=== PATIENT | male | born 1945 | race American Indian/Alaskan Native ===

== ENCOUNTER 2016-09-16 14:27 | Emergency (ER) | payer MEDICARE ==
[2016-09-16 15:00] VITALS: BP 152/83
== END 2016-09-16 18:40 | disposition left against medical advice (07) ==
LOC: ED 14:27
DX: R51 Headache (principal); Z53.21 Procedure and treatment not carried out due to patient leaving prior to being seen by health care provider
CPT/HCPCS: 93005; 93010

== ENCOUNTER 2016-09-18 16:26 | Emergency (ER) | payer MEDICARE ==
[2016-09-18 16:41] VITALS: BP 149/106
--- NOTE | 2016-09-21 18:35 | ED Elopement Review ---
ED Pt Elopement review - Call Back decision Pt Call Back Decision: Pt to F/U with PMD
== END 2016-09-18 21:24 | disposition left against medical advice (07) ==
LOC: ED 16:26
DX: R07.89 Other chest pain (principal); M54.9 Dorsalgia, unspecified; R51 Headache; Z53.21 Procedure and treatment not carried out due to patient leaving prior to being seen by health care provider
CPT/HCPCS: 93005; 93010

== ENCOUNTER 2017-03-17 05:29 | Emergency (ER) | payer MEDICARE ==
[2017-03-17 06:32] VITALS: BP 139/88
[2017-03-17 06:53] LABS: Basophils % (Auto) 0.7 % (0.0-1.8); Hematocrit 43.1 % (35.5-45.6); Hemoglobin 14.2 gm/dl (11.8-15.2); Mean Corpuscular HGB Conc 33 % (32-34); Mean Corpuscular Hemoglobin 30 pg (28-32); Mean Corpuscular Volume 91 fl (84-94); Platelet Count 163 K/mm3 (140-440); Red Blood Count 4.76 M/mm3 (3.65-5.03); Red Cell Distribution Width 13.7 % (13.2-15.2); White Blood Count 6.4 K/mm3 (4.5-11.0)
[2017-03-17 07:11] LABS: Anion Gap 17 mmol/L; Blood Urea Nitrogen 14 mg/dL (9-20); Calcium 8.9 mg/dL (8.4-10.2); Carbon Dioxide 25 mmol/L (22-30); Chloride 104.4 mmol/L (98-107); Glucose 96 mg/dL (75-100); Sodium 142 mmol/L (137-145)
[2017-03-17 07:23] LABS: INR 0.93 (0.87-1.13)
--- NOTE | 2017-03-17 08:23 | XRay Report ---
CHEST TWO VIEWS: 03/17/17 06:46 CLINICAL: Chest pain. COMPARISON: 06/29/16 FINDINGS: Normal heart. Relatively large central pulmonary arteries.Marked aortic tortuosity is unchanged compared to the prior exam. The lungs are hyperexpanded and hyperlucent . No airspace disease or pleural effusion.The bones and soft tissues are unremarkable. IMPRESSION: COPD. No CHF or pneumonia.
--- NOTE | 2017-03-17 10:54 | Emergency Department Report ---
ED General Adult HPI - General Chief complaint: Chest Pain Stated complaint: CHEST PAIN Time Seen by Provider: 03/17/17 09:40 Source: patient, RN notes reviewed, old records reviewed Mode of arrival: Ambulatory Limitations: No Limitations - History of Present Illness Initial comments: The tightness did not radiate to the back, arms or neck. There is no nausea, vomiting or diaphoresis. There is no shortness of breath. There is no cough. There is no hemoptysis or hematemesis. There is no leg pain or leg swelling. No recent trips greater than 4 hours. No recent hospital admissions. The patient reports a negative stress test with [facility] a few months ago. -: Gradual Location: chest Radiation: non-radiation Severity scale (0 -10): 3 Quality: aching Consistency: now resolved Improves with: none Worsens with: none Associated Symptoms: denies other symptoms - Related Data Previous Rx's Medication Instructions Recorded Last Taken Type traMADol [Ultram] 50 mg PO Q4HR PRN #20 tablet 10/01/15 Unknown Rx Sulfamethoxazole/Trimethoprim 1 each PO BID #6 tablet 04/30/16 Unknown Rx [Bactrim DS TAB] ALBUTEROL Inhaler [Proair] 2 puff IH QID PRN #1 inhalation 06/29/16 Unknown Rx Amoxicillin/K Clav Tab [Augmentin 1 tab PO Q12HR #20 tab 06/29/16 Unknown Rx 875 mg] guaiFENesin/CODEINE [Robitussin AC] 10 ml PO QHS PRN #70 ml 06/29/16 Unknown Rx predniSONE [Deltasone] 50 mg PO QDAY #5 tab 06/29/16 Unknown Rx Aspirin [Aspirin TAB] 325 mg PO QDAY #30 tablet 03/17/17 Unknown Rx Allergies Allergy/AdvReac Type Severity Reaction Status Date / Time No Known Allergies Allergy Verified 06/29/16 10:24 ED Review of Systems ROS: Stated complaint: CHEST PAIN Other details as noted in HPI ED Past Medical Hx - Past Medical History Previous Medical History?: No - Surgical History Past Surgical History?: No - Social History Smoking Status: Never Smoker - Medications Home Medications: Home Medications Medication Instructions Recorded Confirmed Last Taken Type traMADol [Ultram] 50 mg PO Q4HR PRN #20 tablet 10/01/15 Unknown Rx Sulfamethoxazole/Trimethoprim 1 each PO BID #6 tablet 04/30/16 Unknown Rx [Bactrim DS TAB] ALBUTEROL Inhaler [Proair] 2 puff IH QID PRN #1 inhalation 06/29/16 Unknown Rx Amoxicillin/K Clav Tab [Augmentin 1 tab PO Q12HR #20 tab 06/29/16 Unknown Rx 875 mg] guaiFENesin/CODEINE [Robitussin AC] 10 ml PO QHS PRN #70 ml 06/29/16 Unknown Rx predniSONE [Deltasone] 50 mg PO QDAY #5 tab 06/29/16 Unknown Rx Aspirin [Aspirin TAB] 325 mg PO QDAY #30 tablet 03/17/17 Unknown Rx ED Physical Exam - General Limitations: No Limitations General appearance: alert, in no apparent distress - Head Head exam: Present: atraumatic, normocephalic - Eye Eye exam: Present: normal appearance, EOMI. Absent: nystagmus - ENT ENT exam: Present: normal exam, normal orophraynx, mucous membranes moist, normal external ear exam - Neck Neck exam: Present: normal inspection, full ROM. Absent: tenderness, meningismus - Respiratory Respiratory exam: Present: normal lung sounds bilaterally. Absent: respiratory distress, wheezes, rales, stridor, chest wall tenderness - Cardiovascular Cardiovascular Exam: Present: regular rate, normal rhythm, normal heart sounds. Absent: bradycardia, tachycardia, irregular rhythm, systolic murmur, diastolic murmur, rubs, gallop - GI/Abdominal GI/Abdominal exam: Present: soft, normal bowel sounds. Absent: distended, tenderness, guarding, rebound, rigid, pulsatile mass - Rectal Rectal exam: Present: deferred - Extremities Exam Extremities exam: Present: normal inspection, full ROM, normal capillary refill. Absent: pedal edema, joint swelling, calf tenderness - Back Exam Back exam: Present: normal inspection, full ROM. Absent: tenderness, CVA tenderness (R), CVA tenderness (L), muscle spasm, paraspinal tenderness, vertebral tenderness - Neurological Exam Neurological exam: Present: alert, oriented X3, normal gait, other (Extraocular movements intact. Tongue midline. No facial droop. Facial sensation intact to light touch in the V1, V2, V3 distribution bilaterally. 5 and 5 strength in 4 extremities.. Sensation is intact to light touch in 4 extremities.). Absent : motor sensory deficit - Psychiatric Psychiatric exam: Present: normal affect, normal mood - Skin Skin exam: Present: warm, dry, intact, normal color. Absent: rash ED Course Vital Signs 03/17/17 03/17/17 06:27 09:21 Temperature 98.7 F Pulse Rate 61 Respiratory 18 16 Rate Blood Pressure 139/88 O2 Sat by Pulse 98 97 Oximetry ED Medical Decision Making - Lab Data Result diagrams: 03/17/17 06:39 03/17/17 06:39 Vital Signs 03/17/17 03/17/17 06:27 09:21 Temperature 98.7 F Pulse Rate 61 Respiratory 18 16 Rate Blood Pressure 139/88 O2 Sat by Pulse 98 97 Oximetry Labs 03/17/17 03/17/17 03/17/17 06:39 06:39 06:52 WBC 6.4 RBC 4.76 Hgb 14.2 Hct 43.1 MCV 91 MCH 30 MCHC 33 RDW 13.7 Plt Count 163 Lymph % (Auto) 19.2 Burnett % (Auto) 8.5 H Eos % (Auto) 1.0 Baso % (Auto) 0.7 Lymph # 1.2 Burnett # 0.5 Eos # 0.1 Baso # 0.0 Seg Neutrophils % 70.6 H Seg Neutrophils # 4.6 PT 12.9 INR 0.93 Carbon Dioxide 25 BUN 14 Creatinine 0.8 Estimated GFR > 60 BUN/Creatinine Ratio 17.50 Glucose 96 Calcium 8.9 Troponin T < 0.010 03/17/17 09:41 WBC RBC Hgb Hct MCV MCH MCHC RDW Plt Count Lymph % (Auto) Burnett % (Auto) Eos % (Auto) Baso % (Auto) Lymph # Burnett # Eos # Baso # Seg Neutrophils % Seg Neutrophils # PT INR Carbon Dioxide BUN Creatinine Estimated GFR BUN/Creatinine Ratio Glucose Calcium Troponin T < 0.010 - EKG Data -: EKG Interpreted by Ri EKG shows normal: sinus rhythm - EKG Data Interpretation: no acute changes 03/17/17 11:31 EKG #1 demonstrates sinus, 60 bpm, left axis deviation, not morphologically consistent with STEMI, appears unchanged when compared to prior EKG from August 2016. EKG #2 demonstrates sinus bradycardia, incomplete right bundle branch block, left axis deviation, not consistent with STEMI, appears unchanged when compared to prior EKG. - Radiology Data Radiology results: report reviewed, image reviewed X-ray of the chest is negative for acute disease. Hyperinflation/COPD suggested. - Medical Decision Making Differential diagnosis: GERD, gastritis, pneumonia, costochondritis, pleuritis, pericarditis Assessment and plan: 71-year-old male with resolved atypical chest pain. He is low risk by LAUREN score, he is low risk by heart score, he is low risk by well's criteria, and he has no pulmonary embolus or DVT risk factors. Patient at low risk for major adverse cardiac event. He does not want to be admitted. 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 Through shared decision- making, the patient elects to follow-up as an outpatient I think that this is a reasonable plan. Return precautions are reviewed. Critical care attestation.: If time is entered above; I have spent that time in minutes in the direct care of this critically ill patient, excluding procedure time. ED Disposition Clinical Impression: Chest tightness Disposition: DC-01 TO HOME OR SELFCARE Is pt being admited?: No Does the pt Need Aspirin: No Condition: Stable Instructions: Chest Pain (ED) Additional Instructions: Continue current outpatient medications. Follow up with any of the listed cardiology specialists within the next 3-5 days. Return to the ER right away with For some pain, migration of pain, fevers, chills, lethargy, irritability, confusion, change in mental status, inability to tolerate liquid feeds. Referrals: PRIMARY CAREMD [Primary Care Provider] - 3-5 Days RAIMUNDO PARKER MD [Staff Physician] - 3-5 Days BUNNY SAAB MD [Staff Physician] - 3-5 Days
== END 2017-03-17 11:40 | disposition home or self-care (01) ==
LOC: ED 05:29
DX: R07.89 Other chest pain (principal); Z79.82 Long term (current) use of aspirin
CPT/HCPCS: 36415; 71020; 80048; 84484; 85025; 85610; 93005; 93010

== ENCOUNTER 2017-05-18 06:17 | Emergency (ER) | payer MEDICARE ==
[2017-05-18 07:39] LABS: Basophils % (Auto) 0.6 % (0.0-1.8); Eosinophils % (Auto) 2.9 % (0.0-4.3); Hematocrit 42.3 % (35.5-45.6); Mean Corpuscular HGB Conc 33 % (32-34); Mean Corpuscular Hemoglobin 30 pg (28-32); Mean Corpuscular Volume 91 fl (84-94); Platelet Count 157 K/mm3 (140-440); Red Blood Count 4.63 M/mm3 (3.65-5.03); Red Cell Distribution Width 13.7 % (13.2-15.2); White Blood Count 6.7 K/mm3 (4.5-11.0)
[2017-05-18 07:49] LABS: INR 0.93 (0.87-1.13); Partial Thromboplastin Time 33.7 Sec. (24.2-36.6)
[2017-05-18 07:57] LABS: Anion Gap 15 mmol/L; Blood Urea Nitrogen 10 mg/dL (9-20); Calcium 8.8 mg/dL (8.4-10.2); Carbon Dioxide 27 mmol/L (22-30); Chloride 103.4 mmol/L (98-107); Glucose 120 mg/dL (75-100); Potassium 3.9 mmol/L (3.6-5.0); Sodium 141 mmol/L (137-145)
--- NOTE | 2017-05-18 08:28 | Emergency Department Report ---
HPI - General Chief Complaint: Chest Pain Time Seen by Provider: 05/18/17 08:14 - HPI HPI: Room 2 The patient is a 72-year-old male presenting with a chief complaint of left upper quadrant abdominal pain. The patient states since yesterday he has had intermittent sharp pain in the left flank/left upper quadrant. Patient states there is no relationship with movement or inspiration. Patient denies pleurisy. Patient denies shortness of breath, nausea/vomiting or diaphoresis. Patient denies ever having chest pain. The patient is currently pain-free Location: Left flank Duration: Intermittent since yesterday Quality: Sharp Severity: Currently 0/10 Modifying factors: [see above] Context: [see above] Mode of transportation: The patient drove himself to the emergency department and there are no visitors present ED Past Medical Hx - Past Medical History Previous Medical History?: No - Surgical History Past Surgical History?: No - Family History Family history: no significant - Social History Smoking Status: Never Smoker Substance Use Type: None (denies illicit drug use) - Medications Home Medications: Home Medications Medication Instructions Recorded Confirmed Last Taken Type traMADol [Ultram] 50 mg PO Q4HR PRN #20 tablet 10/01/15 03/17/17 Unknown Rx Sulfamethoxazole/Trimethoprim 1 each PO BID #6 tablet 04/30/16 03/17/17 Unknown Rx [Bactrim DS TAB] ALBUTEROL Inhaler [Proair] 2 puff IH QID PRN #1 inhalation 06/29/16 03/17/17 Unknown Rx Amoxicillin/K Clav Tab [Augmentin 1 tab PO Q12HR #20 tab 06/29/16 03/17/17 Unknown Rx 875 mg] guaiFENesin/CODEINE [Robitussin AC] 10 ml PO QHS PRN #70 ml 06/29/16 03/17/17 Unknown Rx predniSONE [Deltasone] 50 mg PO QDAY #5 tab 06/29/16 03/17/17 Unknown Rx Aspirin [Aspirin TAB] 325 mg PO QDAY #30 tablet 03/17/17 Unknown Rx Famotidine [Pepcid] 20 mg PO BID #20 tablet 05/18/17 Unknown Rx traMADol [Ultram] 50 mg PO Q6HR PRN #10 tablet 05/18/17 Unknown Rx ED Review of Systems ROS: Stated complaint: LEFT SIDE PAIN Other details as noted in HPI Comment: All other systems reviewed and negative Constitutional: denies: chills, fever Eyes: denies: eye pain, eye discharge, vision change ENT: denies: ear pain, throat pain Respiratory: denies: cough, shortness of breath, wheezing Cardiovascular: denies: chest pain, palpitations Endocrine: no symptoms reported Gastrointestinal: denies: abdominal pain, nausea, diarrhea Genitourinary: denies: urgency, dysuria Musculoskeletal: myalgia Skin: denies: rash, lesions Neurological: denies: headache, weakness, paresthesias Psychiatric: denies: anxiety, depression Hematological/Lymphatic: denies: easy bleeding, easy bruising Physical Exam - Physical Exam Vital Signs: Vital Signs 05/18/17 05/18/17 05/18/17 06:40 07:14 08:01 Temperature 98.7 F 98.4 F Pulse Rate 75 93 H 60 Respiratory 18 18 18 Rate Blood Pressure 136/87 141/98 O2 Sat by Pulse 97 99 99 Oximetry 05/18/17 08:15 Temperature Pulse Rate 81 Respiratory 21 Rate Blood Pressure 147/111 O2 Sat by Pulse 99 Oximetry Physical Exam: GENERAL: The patient is well-developed well-nourished male lying on stretcher not appearing to be in acute distress. [] HEENT: Normocephalic. Atraumatic. Extraocular motions are intact. Patient has moist mucous membranes. NECK: Supple. No meningitic signs are noted. There is no adenopathy noted. CHEST/LUNGS: Clear to auscultation. There is no respiratory distress noted. HEART/CARDIOVASCULAR: Regular. There is no tachycardia. There is no gallop rub or murmur. ABDOMEN: Abdomen is soft, nontender. Patient has normal bowel sounds. There is no abdominal distention. SKIN: There is a quarter-sized region of pale ecchymosis overlying the proximal left forearm. There is no drainage, there is no swelling. There is no edema. There is no diaphoresis. NEURO: The patient is awake, alert, and oriented. The patient is cooperative. The patient has normal speech MUSCULOSKELETAL: There is no CVA tenderness. There is no evidence of acute injury. ED Course Vital Signs 05/18/17 05/18/17 05/18/17 06:40 07:14 08:01 Temperature 98.7 F 98.4 F Pulse Rate 75 93 H 60 Respiratory 18 18 18 Rate Blood Pressure 136/87 141/98 O2 Sat by Pulse 97 99 99 Oximetry 05/18/17 08:15 Temperature Pulse Rate 81 Respiratory 21 Rate Blood Pressure 147/111 O2 Sat by Pulse 99 Oximetry ED Medical Decision Making - Lab Data Result diagrams: 05/18/17 07:26 05/18/17 07:26 Laboratory Tests 05/18/17 05/18/17 05/18/17 07:26 07:26 07:26 WBC 6.7 RBC 4.63 Hgb 14.0 Hct 42.3 MCV 91 MCH 30 MCHC 33 RDW 13.7 Plt Count 157 Lymph % (Auto) 13.8 Wheeler % (Auto) 11.2 H Eos % (Auto) 2.9 Baso % (Auto) 0.6 Lymph # 0.9 L Wheeler # 0.7 Eos # 0.2 Baso # 0.0 Seg Neutrophils % 71.5 H Seg Neutrophils # 4.8 PT 12.4 INR 0.93 APTT 33.7 Sodium 141 Potassium 3.9 Chloride 103.4 Carbon Dioxide 27 Anion Gap 15 BUN 10 Creatinine 0.8 Estimated GFR > 60 BUN/Creatinine Ratio 12.50 Glucose 120 H Calcium 8.8 Troponin T < 0.010 Urine Color Urine Turbidity Urine pH Ur Specific Allons Urine Protein Urine Glucose (UA) Urine Ketones Urine Blood Urine Nitrite Urine Bilirubin Urine Urobilinogen Ur Leukocyte Esterase Urine WBC (Auto) Urine RBC (Auto) U Epithel Cells (Auto) Urine Mucus 05/18/17 08:43 WBC RBC Hgb Hct MCV MCH MCHC RDW Plt Count Lymph % (Auto) Wheeler % (Auto) Eos % (Auto) Baso % (Auto) Lymph # Wheeler # Eos # Baso # Seg Neutrophils % Seg Neutrophils # PT INR APTT Sodium Potassium Chloride Carbon Dioxide Anion Gap BUN Creatinine Estimated GFR BUN/Creatinine Ratio Glucose Calcium Troponin T Urine Color Yellow Urine Turbidity Clear Urine pH 6.0 Ur Specific Allons 1.006 Urine Protein <15 mg/dl Urine Glucose (UA) Neg Urine Ketones Neg Urine Blood Neg Urine Nitrite Neg Urine Bilirubin Neg Urine Urobilinogen < 2.0 Ur Leukocyte Esterase Neg Urine WBC (Auto) 0.0 Urine RBC (Auto) 2.0 U Epithel Cells (Auto) 1.0 Urine Mucus Few - EKG Data -: EKG Interpreted by Ct EKG shows normal: sinus rhythm Rate: bradycardia (55 bpm) - EKG Data When compared to previous EKG there are: previous EKG unavailable Interpretation: nonspecific ST-T wave marianne (flattened T waves inferiorly) - Radiology Data Radiology results: report reviewed (CT abdomen and pelvis), image reviewed (CT abdomen and pelvis) CT abdomen and pelvis (read by radiologist)-no hydronephrosis. No diverticulitis. Gases small and large bowel. - Differential Diagnosis renal colic, aortic dissection, gastritis, peptic ulcer disease, pyelonephr Critical care attestation.: If time is entered above; I have spent that time in minutes in the direct care of this critically ill patient, excluding procedure time. ED Disposition Clinical Impression: Left flank pain, Left upper quadrant abdominal pain of unknown etiology Disposition: TO HOME OR SELFCARE Is pt being admited?: No Does the pt Need Aspirin: No Condition: Stable Instructions: Abdominal Pain (ED) Additional Instructions: Return to the emergency department immediately should you develop worsening symptoms, fever, inability to tolerate food or liquid or any other concerns. Prescriptions: Famotidine [Pepcid] 20 mg PO BID #20 tablet traMADol [Ultram] 50 mg PO Q6HR PRN #10 tablet PRN Reason: Pain Referrals: ANNE-MARIE BEAR MD [Staff Physician] - 3-5 Days (Dr. Bear is a primary physician. Please follow up with him to be established as a patient) ROBBIE SEAMAN MD [Staff Physician] - 3-5 Days (Dr. Seaman is a waxer operator. Please follow up with him for further evaluation) BRANDON SOSA MD [Staff Physician] - 3-5 Days (Dr. Sosa is a mechanical car checker. Please follow up with him for further evaluation) Time of Disposition: 10:10
[2017-05-18] MEDS ORDERED: NACL ONE (08:40)
[2017-05-18 09:14] LABS: Bilirubin,Urine NEG (Negative); Blood,Urine NEG (Negative); Ketones,Urine NEG (Negative); Leukocyte Esterase,Urine NEG (Negative); Mucus,Urine FEW /HPF; Nitrite,Urine NEG (Negative); Protein,Urine <15 mg/dL mg/dL (Negative); Urobilinogen,Urine < 2.0 mg/dL (<2.0)
--- NOTE | 2017-05-18 09:50 | Cat Scan Report ---
CT scan of abdomen and pelvis without and with IV contrast: History: Left flank pain. Findings: Normal lung bases. No pleural or pericardial effusion. Normal spleen, pancreas and gallbladder. Single calcification at right lower the liver probably calcified granuloma. Normal adrenals and kidney parenchyma. No calculi or mass. No hydronephrosis. Normal bladder. No free intraperitoneal fluid or. No evidence of adenopathy. Calcification in the center of the prostate. Prostate measures approximately 3.27 multiple 9 cm. Normal appendix. No evidence of diverticulitis. Gaseous small and large bowels without significant distention. Moderate amount of stool in the colon. Impression: No hydronephrosis. No diverticulitis. Gaseous small and large bowel.
[2017-05-18 10:50] VITALS: BP 157/90
== END 2017-05-18 10:30 | disposition home or self-care (01) ==
LOC: ED 06:17
DX: R10.12 Left upper quadrant pain (principal)
CPT/HCPCS: 36415; 74178; 80048; 81001; 84484; 85025; 85610; 85730; 93005; 93010; 99284; Q9967

== ENCOUNTER 2019-03-13 03:43 | Emergency (ER) | payer MEDICARE ==
[2019-03-13 03:54] VITALS: BP 116/78
--- NOTE | 2019-03-13 04:22 | XRay Report ---
LEFT HAND 3 VIEWS INDICATION / CLINICAL INFORMATION: Left hand pain/injury. COMPARISON: None available. FINDINGS: BONES and JOINT(S): No acute fracture or subluxation. No significant arthritis. There is generalized osteopenia. SOFT TISSUES: No significant abnormality. ADDITIONAL FINDINGS: None. IMPRESSION: No acute findings. Signer Name: Hang Issa MD Signed: 03/13/2019 4:17 AM Workstation Name: [id number]
--- NOTE | 2019-03-13 05:34 | Emergency Department Report ---
ED Upper Extremity Inj HPI - General Chief Complaint: Extremity Injury, Upper Stated Complaint: LUMP ON LEFT HAND/SHARP PAIN LT RASTAFARI Time Seen by Provider: 03/13/19 05:17 Source: patient Mode of arrival: Ambulatory Limitations: No Limitations - History of Present Illness Initial Comments: 73-year-old -[place] male presents emerge department complaining of right hand pain and stiffness off and on for the past couple days. Stuck in the flexed position and he noticed a stiffness to his joints that responded to WD- 40. He reports no known history of arthritis. No known recent trauma, fever or chills, sweats. No numbness or tingling. He denies any direct trauma to the fingers but does have a cystic mass growing at the base of his first phalanges Complaint: Injury to:: hand -: Gradual Other Extremity Injury: Hand: Left Other Injuries: none Handedness: right Improves With: movement (and the utilization of WD-40.) Context: other Associated Symptoms: denies other symptoms - Related Data Previous Rx's Medication Instructions Recorded Last Taken Type traMADol [Ultram] 50 mg PO Q4HR PRN #20 tablet 10/01/15 Unknown Rx Sulfamethoxazole/Trimethoprim 1 each PO BID #6 tablet 04/30/16 Unknown Rx [Bactrim DS TAB] ALBUTEROL Inhaler (OR & NICU) 2 puff IH QID PRN #1 inhalation 06/29/16 Unknown Rx [Proair] Amoxicillin/K Clav Tab [Augmentin 1 tab PO Q12HR #20 tab 06/29/16 Unknown Rx 875 mg] guaiFENesin/CODEINE [Robitussin AC] 10 ml PO QHS PRN #70 ml 06/29/16 Unknown Rx predniSONE [Deltasone] 50 mg PO QDAY #5 tab 06/29/16 Unknown Rx Aspirin 325 mg PO QDAY #30 tablet 03/17/17 Unknown Rx Famotidine [Pepcid] 20 mg PO BID #20 tablet 05/18/17 Unknown Rx traMADol [Ultram] 50 mg PO Q6HR PRN #10 tablet 05/18/17 Unknown Rx Acetaminophen [Tylenol] 650 mg PO TID PRN #30 capsule 07/14/18 Unknown Rx Diclofenac Sodium [Voltaren] 1 applicatio TP TID PRN #1 tube 07/14/18 Unknown Rx Allergies Allergy/AdvReac Type Severity Reaction Status Date / Time No Known Allergies Allergy Verified 03/13/19 03:54 ED Review of Systems ROS: Stated complaint: LUMP ON LEFT HAND/SHARP PAIN LT RASTAFARI Other details as noted in HPI Comment: All other systems reviewed and negative ED Past Medical Hx - Past Medical History Previous Medical History?: No - Surgical History Past Surgical History?: No - Social History Smoking Status: Never Smoker Substance Use Type: Marijuana - Medications Home Medications: Home Medications Medication Instructions Recorded Confirmed Last Taken Type traMADol [Ultram] 50 mg PO Q4HR PRN #20 tablet 10/01/15 03/17/17 Unknown Rx Sulfamethoxazole/Trimethoprim 1 each PO BID #6 tablet 04/30/16 03/17/17 Unknown Rx [Bactrim DS TAB] ALBUTEROL Inhaler (OR & NICU) 2 puff IH QID PRN #1 inhalation 06/29/16 03/17/17 Unknown Rx [Proair] Amoxicillin/K Clav Tab [Augmentin 1 tab PO Q12HR #20 tab 06/29/16 03/17/17 Un known Rx 875 mg] guaiFENesin/CODEINE [Robitussin AC] 10 ml PO QHS PRN #70 ml 06/29/16 03/17/17 Unknown Rx predniSONE [Deltasone] 50 mg PO QDAY #5 tab 06/29/16 03/17/17 Unknown Rx Aspirin 325 mg PO QDAY #30 tablet 03/17/17 Unknown Rx Famotidine [Pepcid] 20 mg PO BID #20 tablet 05/18/17 Unknown Rx traMADol [Ultram] 50 mg PO Q6HR PRN #10 tablet 05/18/17 Unknown Rx Acetaminophen [Tylenol] 650 mg PO TID PRN #30 capsule 07/14/18 Unknown Rx Diclofenac Sodium [Voltaren] 1 applicatio TP TID PRN #1 tube 07/14/18 Unknown Rx ED Physical Exam - General Limitations: No Limitations General appearance: alert, in no apparent distress - Head Head exam: Present: atraumatic, normocephalic - Eye Eye exam: Present: normal appearance - ENT ENT exam: Present: mucous membranes moist - Neck Neck exam: Present: normal inspection - Respiratory Respiratory exam: Present: normal lung sounds bilaterally. Absent: respiratory distress - Cardiovascular Cardiovascular Exam: Present: regular rate, normal rhythm. Absent: systolic murmur, diastolic murmur, rubs, gallop - GI/Abdominal GI/Abdominal exam: Present: soft, normal bowel sounds - Rectal Rectal exam: Present: deferred - Extremities Exam Extremities exam: Present: normal inspection, tenderness ((a cystic mass to the base of the first phalanges) - Expanded Upper Extremity Exam Left Shoulder Exam: Present: normal inspection, full ROM Upper Arm exam: Present: normal inspection, full ROM Elbow exam: Present: normal inspection, full ROM Forearm Wrist exam: Absent: laceration, ecchymosis, crepidus, dislocation, erythema, tenderness over anatomical snuff box, pain with axial thumb loading Hand Wrist exam: Present: tenderness (cystic mass based first). Absent: swelling, abrasion, amputation, nail avulsion, subungual hematoma Hand L/R Back: 1 - Tender cystic mass to this region Vascular: Present: normal capillary refill - Back Exam Back exam: Present: normal inspection, full ROM. Absent: CVA tenderness (R), CVA tenderness (L) - Neurological Exam Neurological exam: Present: alert, oriented X3 - Psychiatric Psychiatric exam: Present: normal affect, normal mood - Skin Skin exam: Present: warm, dry, intact, normal color. Absent: rash ED Course Vital Signs 03/13/19 03:50 Temperature 98.1 F Pulse Rate 69 Respiratory 16 Rate Blood Pressure 116/78 O2 Sat by Pulse 96 Oximetry Critical care attestation.: If time is entered above; I have spent that time in minutes in the direct care of this critically ill patient, excluding procedure time. ED Disposition Clinical Impression: Tendinopathy Disposition: DC-01 TO HOME OR SELFCARE Is pt being admited?: No Does the pt Need Aspirin: No Condition: Stable Instructions: Tenosynovitis (ED) Referrals: PRIMARY CARE, [Primary Care Provider] - 3-5 Days [facility] [Provider Group] - 3-5 Days
== END 2019-03-13 05:50 | disposition home or self-care (01) ==
LOC: ED 03:43
DX: M77.9 Enthesopathy, unspecified (principal); F12.90 Cannabis use, unspecified, uncomplicated; Z79.82 Long term (current) use of aspirin; Z79.899 Other long term (current) drug therapy
CPT/HCPCS: 99283